=== PATIENT | male | born 1985 | race African-American/Black ===

== ENCOUNTER 2016-11-06 11:03 | Emergency (ER) | payer SELFPAY ==
[~2016-11-06] VITALS: Ht 190.5 cm; Wt 97.5 kg
[2016-11-06 11:26] VITALS: BP 136/84
[2016-11-06] MEDS ORDERED: PRED20TA PO (12:28)
[2016-11-06] MEDS ORDERED: DOXY100C2 PO (12:28)
--- NOTE | 2016-11-06 12:29 | PHYS DOC ---
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 He states he has a history of asthma in which she has been using his inhaler more frequently than normal since Friday. He states that he had a new inhaler that was capable of 200 Puffs he states that he is down to 100 at this time. Patient denies any fever, chills does states that he has had a productive cough. He denies any nausea or vomiting. Review of Systems Review of Systems Constitutional: Denies fever or chills [] Eyes: Denies change in visual acuity, redness, or eye pain [] HENT: nasal congestion denies sore throat [] Respiratory: Complaining of cough and shortness of air Cardiovascular: No additional information not addressed in HPI [] GI: Denies abdominal pain, nausea, vomiting, bloody stools or diarrhea [] : Denies dysuria or hematuria [] Musculoskeletal: Denies back pain or joint pain [] Integument: Denies rash or skin lesions [] Neurologic: Denies headache, focal weakness or sensory changes [] Endocrine: Denies polyuria or polydipsia [] Current Medications Current Medications Current Medications Medications (Trade) Dose Ordered Sig/[facility] Start Time Stop Time Status Last Admin Dose Admin Albuterol/ Ipratropium (Duoneb) 3 ml 1X ONCE 11/06/16 13:00 11/06/16 13:01 11/06/16 12:41 3 ML Prednisone (Prednisone) 40 mg 1X ONCE 11/06/16 13:00 11/06/16 13:01 Allergies Allergies Allergies Coded Allergies Type Severity Reaction Last Updated Verified No Known Drug Allergies 11/06/16 No Physical Exam Physical Exam Constitutional: Well developed, well nourished, no acute distress, non-toxic appearance. [] HENT: Normocephalic, atraumatic, bilateral external ears normal, oropharynx moist, no oral exudates, nose normal. Bilateral tympanic membranes appear to be normal. Throat appears to be red with no erythematous no exudate noted. Patient does sound nasally congested. Eyes: PERRLA, EOMI, conjunctiva normal, no discharge. [] Neck: Normal range of motion, no tenderness, supple, no stridor. [] Cardiovascular:Heart rate regular rhythm, no murmur [] Lungs & Thorax: Bilateral breath sounds with slight wheezes noted anteriorly in the right upper lobe. Skin: Warm, dry, no erythema, no rash. [] Back: No tenderness, Extremities: No tenderness, no cyanosis, no clubbing, ROM intact, no edema. [] Neurologic: Alert and oriented X 3, normal motor function, normal sensory function, no focal deficits noted. [] Psychologic: Affect normal, judgement normal, mood normal. [] Current Patient Data Vital Signs Vital Signs Date Time Temp Pulse Resp B/P (MAP) Pulse Ox O2 Delivery O2 Flow Rate FiO2 11/06/16 12:41 99 Room Air 11/06/16 11:26 98.2 75 16 98.2 EKG EKG [] Radiology/Procedures Radiology/Procedures [] Course & Med Decision Making Course & Med Decision Making Pertinent Labs and Imaging studies reviewed. (See chart for details) Spoke with patient in regards to overuse of his albuterol inhaler at home. He' ll be provided with a DuoNeb treatment here in the emergency department. Patient 's breath sounds at this time appears to have more air movement noted. He'll be discharged home in stable condition with recommendations to use the doxycycline as an antibiotic, he will be placed on prednisone to help open up the airways. Recommended Sudafed and Mucinex DM [id number]. Patient will be discharged home with signs and symptoms to return back to the emergency department. Patient agrees with discharge instructions, treatment regimens and follow-up recommendations. All questions were answered for the patient at his bedside. [] Dragon Disclaimer Dragon Disclaimer This electronic medical record was generated, in whole or in part, using a voice recognition dictation system. Departure Departure Impression: Primary Impression: Sinusitis Additional Impression: URI (upper respiratory infection) Disposition: 01 HOME, SELF-CARE Condition: STABLE Referrals: NO PCP (PCP) Patient Instructions: Sinusitis, [id number], Upper Respiratory Infection, Adult, [id number] Additional Instructions: Your being treated for a sinus infection, as well as an upper respiratory infection. Antibiotics as prescribed make sure he take all the medications as prescribed and do not stop when she started feeling better until later completed. Steroids as prescribed. Mucinex DM as prescribed by shell coremaker [id number]. Sudafed as prescribed by shell coremaker [id number] as well. Do not use her albuterol inhaler more than every 4-6 hours. Drink plenty of fluids. Follow-up with primary care physician in the next 7-10 days. Return to the emergency department for signs and symptoms of become worse. Scripts Prednisone (PREDNISONE) 20 Mg Tablet 40 MG PO DAILY, #14 TAB Prov: EMA LEE APRN 11/06/16 Doxycycline Hyclate (DOXYCYCLINE HYCLATE) 100 Mg Capsule 1 CAP PO BID, #20 CAP Prov: EMA LEE APRN 11/06/16 Problem Qualifiers EMA LEE APRN Nov 06, 2016 12:29
[2016-11-06] MEDS ORDERED: IPRATRPIUM/ALBUTEROL 0.5/2.5MG 3 ML NEBU. NEB ONE (13:00)
[2016-11-06] MEDS ORDERED: predniSONE 20 MG TABLET PO ONE (13:00)
== END 2016-11-06 13:00 | disposition home or self-care (01) ==
LOC: ER 11:03
DX: J06.9 Acute upper respiratory infection, unspecified (principal); J32.9 Chronic sinusitis, unspecified; J45.909 Unspecified asthma, uncomplicated
CPT/HCPCS: 94640; 99283; J7512; J7620